=== PATIENT | female | born 1960 | race Caucasian/White ===

== ENCOUNTER 2024-03-17 14:51 | Inpatient (IN) | payer OTHER, MEDICAID ==
[~2024-03-17] VITALS: Ht 162.5 cm; Wt 38.4 kg
[2024-03-17] MEDS ORDERED: VALPROIC ACI50 MG/ML PO (18:41)
[2024-03-17] MEDS ORDERED: LEVOTHYROXINE75 MCG PO (18:43)
[2024-03-17] MEDS ORDERED: FAMOTIDINE40 MG PO (18:43)
[2024-03-17] MEDS ORDERED: NATURE'S BLEND100 M2 PO (18:44)
[2024-03-17] MEDS ORDERED: POTASSIUM CHLO10 MEQ PO (18:44)
[2024-03-17] MEDS ORDERED: GOOD SENSE ASP325 MG PO (18:45)
[2024-03-17] MEDS ORDERED: MIRTAZAPINE15 M2 PO (18:47)
[2024-03-18] MEDS ORDERED: IMODIUM A-D2 M2 PO (00:35)
[2024-03-18] MEDS ORDERED: ALUM-MAG HYDROX30 M1 PO (00:37)
[2024-03-18] MEDS ORDERED: VITAMIN D250 MC1 PO (00:40)
[2024-03-22] MEDS ORDERED: PHARMASSURE V500 MCG PO (13:44)
[2024-03-22] MEDS ORDERED: PHARMASSURE FO0.4 MG PO (13:44)
[2024-03-22] MEDS ORDERED: RISPERDAL0.5 MG PO (17:15)
[2024-03-22] MEDS ORDERED: ACETAMINOPHEN 325 MG TAB PO PRN (17:45)
[2024-03-22] MEDS ORDERED: Magnesium Hydroxide 30 ML UDC PO PRN (17:45)
[2024-03-22] MEDS ORDERED: MG-AL HYDROXIDE/SIMETICONE 30 ML UDC PO PRN (17:45)
[2024-03-22] MEDS ORDERED: Menthol/Zinc Oxide 4 GM THIN T PRN (17:55)
[2024-03-22 18:31] VITALS: BP 114/73
[2024-03-22 20:00] VITALS: BP 114/73
[2024-03-22] MEDS ORDERED: RISPERIDONE 0.5 MG TAB PO SCH (21:00)
[2024-03-22] MEDS ORDERED: Mirtazapine 15 MG TAB PO SCH (22:00)
[2024-03-23] MEDS ORDERED: Loperamide Hydrochloride 2 MG CAP PO PRN (00:25)
[2024-03-23] MEDS ORDERED: Levothyroxine Sodium 75 MCG TAB PO SCH (06:00)
[2024-03-23] MEDS ORDERED: Levothyroxine Sodium 75 MCG TAB PO ONE (06:26)
[2024-03-23 06:44] LABS: HEMATOCRIT 30.9 % (37.0-47.0); MEAN CORPUSCULAR HGB 35.7 pg (27.0-31.0); MEAN PLATELET VOLUME 10.2 fl (9.6-12.3); PLATELET COUNT AUTOMATED 317 10*3/uL (130-400); RED BLOOD COUNT 2.77 10*6/uL (4.10-5.10); RED CELL DISTRI WIDTH 13.5 % (0-14.5); WHITE BLOOD COUNT 6.1 10*3/uL (4.8-10.8)
[2024-03-23 06:51] LABS: MANUAL DIFF REFLEX YES; MEAN CELL VOLUME 111.6 fl (81.0-99.0)
[2024-03-23 07:18] LABS: VITAMIN D, 25-HYDROXY 31.7 ng/mL (30-100)
[2024-03-23 07:30] LABS: ALKALINE PHOSPHATASE 55 U/L (46-116); BUN 15 mg/dl (9-23); CHLORIDE 110 mmol/L (98-107); CHOLESTEROL 180 mg/dL (<200); LDL CHOLESTEROL 100 mg/dL (9-159); POTASSIUM 2.9 mmol/L (3.4-5.1); SGPT/ALT 24 U/L (5-49); TOTAL PROTEIN 6.8 gm/dL (6.0-8.0); TRIGLYCERIDES 146 mg/dl (<150)
[2024-03-23 07:34] LABS: BASOPHILS 1 % (0-1); PLATELET SUFFICIENCY NORMAL (NORMAL); TOTAL CELLS COUNTED 100 #CELLS
[2024-03-23 08:06] VITALS: BP 103/57
[2024-03-23] MEDS ORDERED: MAGNESIUM SULFATE 50 ML IV ONE ×2 (08:35→09:35)
[2024-03-23] MEDS ORDERED: FOLIC ACID 0.4 MG TAB PO SCH (10:00)
[2024-03-23] MEDS ORDERED: CYANOCOBALAMIN 500 MCG TAB PO SCH (10:00)
[2024-03-23] MEDS ORDERED: FAMOTIDINE 20 MG TAB PO SCH (10:00)
[2024-03-23] MEDS ORDERED: POTASSIUM CHLORIDE 10 MEQ TAB PO SCH (10:00)
[2024-03-23 11:26] LABS: BILIRUBIN Negative (Negative); BLOOD Negative (Negative); CLARITY Clear (Clear); COLOR Yellow (Yellow); GLUCOSE Negative (Negative); KETONE Negative (Negative); LEUKO ESTERASE Negative (Negative); NITRITE Negative (Negative); PH 6.5 (4.5-8.0); SPECIFIC GRAVITY <= 1.005 (1.001-1.030); UROBILINOGEN 0.2 E.U./dl (0.0-1.0)
[2024-03-23 12:19] LABS: BACTERIA TRACE
[2024-03-24 08:00] VITALS: BP 107/70
[2024-03-24 08:27] LABS: BUN 16 mg/dl (9-23); CHLORIDE 104 mmol/L (98-107); POTASSIUM 2.6 mmol/L (3.4-5.1)
[2024-03-24] MEDS ORDERED: ERGOCALCIFEROL 50,000 IU CAP (1.25 MG) PO SCH (09:00)
[2024-03-24 20:00] VITALS: BP 107/70
[2024-03-25 08:00] VITALS: BP 122/70
[2024-03-25 08:25] LABS: ALKALINE PHOSPHATASE 71 U/L (46-116); BUN 15 mg/dl (9-23); CHLORIDE 106 mmol/L (98-107); POTASSIUM 2.8 mmol/L (3.4-5.1); SGPT/ALT 35 U/L (5-49); TOTAL PROTEIN 7.8 gm/dL (6.0-8.0)
[2024-03-25 20:00] VITALS: BP 113/68
[2024-03-25] MEDS ORDERED: OLANZAPINE 2.5 MG TAB PO SCH (21:00)
[2024-03-26 07:57] VITALS: BP 97/77
[2024-03-26] MEDS ORDERED: POTASSIUM CHLORIDE 20 MEQ TAB PO SCH (17:00)
[2024-03-26 19:41] VITALS: BP 98/80
[2024-03-27 07:33] LABS: BUN 17 mg/dl (9-23); CHLORIDE 106 mmol/L (98-107); POTASSIUM 2.8 mmol/L (3.4-5.1)
[2024-03-27 07:37] LABS: ALKALINE PHOSPHATASE 63 U/L (46-116); BUN 17 mg/dl (9-23); CHLORIDE 105 mmol/L (98-107); POTASSIUM 2.8 mmol/L (3.4-5.1); SGPT/ALT 36 U/L (5-49); TOTAL PROTEIN 6.8 gm/dL (6.0-8.0)
[2024-03-27 08:00] VITALS: BP 100/63
[2024-03-27] MEDS ORDERED: Phosphorus/Potassium 1.45 GM PACKET PO SCH (12:00)
[2024-03-27 20:00] VITALS: BP 104/72
[2024-03-27] MEDS ORDERED: RISPERIDONE 1 MG TAB PO SCH (21:00)
[2024-03-27] MEDS ORDERED: clomiPRAMINE Hydrochloride 25 MG CAP PO SCH (21:00)
[2024-03-28 07:15] LABS: BUN 20 mg/dl (9-23); CHLORIDE 105 mmol/L (98-107); POTASSIUM 2.8 mmol/L (3.4-5.1)
[2024-03-28] MEDS ORDERED: UZEDY125 MG/0.3 SQ (07:38)
[2024-03-28 08:00] VITALS: BP 101/60
[2024-03-28] MEDS ORDERED: RISPERIDONE 125 MG/0.35 ML SUSER.SYR SQ SCH (16:00)
[2024-03-28 20:00] VITALS: BP 108/69
[2024-03-29 08:00] VITALS: BP 104/59
[2024-03-29] MEDS ORDERED: RISPERIDONE 125 MG/0.35 ML SUSER.SYR SQ SCH (09:00)
[2024-03-29 18:56] VITALS: BP 102/58
[2024-03-30] MEDS ORDERED: SODIUM CHLORIDE 0.9% 500 ML IV ONE (07:55)
[2024-03-30 08:00] VITALS: BP 86/75
[2024-03-30 08:34] LABS: BUN 23 mg/dl (9-23); CHLORIDE 105 mmol/L (98-107); POTASSIUM 3.2 mmol/L (3.4-5.1)
[2024-03-30 19:26] VITALS: BP 106/62
[2024-03-30] MEDS ORDERED: clomiPRAMINE Hydrochloride 25 MG CAP PO SCH (21:00)
[2024-03-31 08:00] VITALS: BP 95/63
[2024-03-31 20:00] VITALS: BP 98/63
[2024-04-01 06:27] LABS: BUN 20 mg/dl (9-23); CHLORIDE 105 mmol/L (98-107)
[2024-04-01 08:00] VITALS: BP 98/71
[2024-04-01 18:56] VITALS: BP 99/63
[2024-04-02 08:00] VITALS: BP 97/67
[2024-04-02 20:00] VITALS: BP 114/62
[2024-04-02] MEDS ORDERED: clomiPRAMINE Hydrochloride 25 MG CAP PO SCH (21:00)
[2024-04-03 07:43] VITALS: BP 99/68
[2024-04-03 20:41] VITALS: BP 95/61
[2024-04-04 08:00] VITALS: BP 103/72
[2024-04-04 20:00] VITALS: BP 110/76
[2024-04-05] MEDS ORDERED: CLOMIPRAMINE25 MG PO (06:55)
[2024-04-05 07:58] VITALS: BP 110/71
[2024-04-05 08:15] LABS: BUN 23 mg/dl (9-23); CHLORIDE 106 mmol/L (98-107); POTASSIUM 3.8 mmol/L (3.4-5.1)
[2024-04-05] MEDS ORDERED: POTASSIUM CHLO20 ME4 PO (11:08)
== END 2024-04-05 12:19 | DRG 885 ==
LOC: 3N 14:51
PROVIDERS: Counselor Professional; Internal Medicine; Nurse Practitioner Women's Health; Student in an Organized Health Care Education/Training Program; ADMIT Psychiatry & Neurology Psychiatry; ATTEND Psychiatry & Neurology Psychiatry
PROC: GZHZZZZ Group Psychotherapy (ICD-10-PCS; principal; 2024-03-24)
PROC: GZ51ZZZ Individual Psychotherapy, Behavioral (ICD-10-PCS; 2024-03-24)
DX: F25.9 Schizoaffective disorder, unspecified (principal); E43 Unspecified severe protein-calorie malnutrition; F50.00 Anorexia nervosa, unspecified; Z68.1 Body mass index [BMI] 19.9 or less, adult; E87.6 Hypokalemia; E53.8 Deficiency of other specified B group vitamins; D53.9 Nutritional anemia, unspecified; F42.9 Obsessive-compulsive disorder, unspecified; E83.42 Hypomagnesemia; R73.9 Hyperglycemia, unspecified; F84.0 Autistic disorder; E03.9 Hypothyroidism, unspecified; K21.9 Gastro-esophageal reflux disease without esophagitis; Z88.0 Allergy status to penicillin; Z91.041 Radiographic dye allergy status; Z91.013 Allergy to seafood; Z90.710 Acquired absence of both cervix and uterus; Z82.49 Family history of ischemic heart disease and other diseases of the circulatory system

== ENCOUNTER 2024-08-18 13:39 | Inpatient (IN) | payer OTHER, MEDICAID ==
[~2024-08-18] VITALS: Ht 162.5 cm; Wt 43.5 kg
[~2024-08-18 13:39] MED LIST: ALUM-MAG HYDROX30 M1 PO; CLARITIN10 MG PO; CLOMIPRAMINE25 MG PO; FAMOTIDINE40 MG PO; GOOD SENSE ASP325 MG PO; HYDROXYZINE HCL25 MG PO; IMODIUM A-D2 M2 PO; LEVOTHYROXINE75 MCG PO; MELATONIN10 M2 PO; MIRTAZAPINE15 M2 PO; MULTIVITAMINS1 EAC6 PO; NATURE'S BLEND100 M2 PO; PHARMASSURE FO0.4 MG PO; PHARMASSURE V500 MCG PO; POTASSIUM CHLO10 MEQ PO; POTASSIUM CHLO20 ME4 PO; RISPERDAL0.5 MG PO; SYNTHROID,LEVO88 MCG PO; UZEDY125 MG/0.3 SQ; VALPROIC ACI50 MG/ML PO; VAZALORE81 MG PO; VITAMIN D250 MC1 PO
[2024-08-18] MEDS ORDERED: LORazepam 2 MG/ML VIAL IM PRN (15:40)
[2024-08-18] MEDS ORDERED: LORazepam 1 MG TAB PO PRN (15:40)
[2024-08-18] MEDS ORDERED: Ziprasidone Mesylate 20 MG VIAL IM PRN (15:40)
[2024-08-18] MEDS ORDERED: ACETAMINOPHEN 325 MG TAB PO PRN (15:45)
[2024-08-18] MEDS ORDERED: Magnesium Hydroxide 30 ML UDC PO PRN (15:45)
[2024-08-18] MEDS ORDERED: MG-AL HYDROXIDE/SIMETICONE 30 ML UDC PO PRN (15:45)
[2024-08-18] MEDS ORDERED: Water, Sterile 10 ML VIAL IM PRN (15:55)
[2024-08-18] MEDS ORDERED: LORATADINE 10 MG TAB PO PRN (16:05)
[2024-08-18] MEDS ORDERED: Loperamide Hydrochloride 2 MG CAP PO PRN (16:05)
[2024-08-18 16:30] VITALS: BP 125/66
[2024-08-18] MEDS ORDERED: RISPERIDONE 0.5 MG ODT OGT SCH (18:00)
[2024-08-18 20:00] VITALS: BP 106/56
[2024-08-19] MEDS ORDERED: Levothyroxine Sodium 88 MCG TAB PO SCH (06:00)
[2024-08-19 08:52] VITALS: BP 130/70
[2024-08-19] MEDS ORDERED: Cholecalciferol 2,000 UNIT TABLET (50 MCG) PO SCH (09:00)
[2024-08-19] MEDS ORDERED: FAMOTIDINE 20 MG TAB PO SCH (09:00)
[2024-08-19] MEDS ORDERED: ASPIRIN, CHEWABLE 81 MG TAB PO SCH (09:00)
[2024-08-19 20:00] VITALS: BP 128/75
[2024-08-20] MEDS ORDERED: Levothyroxine Sodium 88 MCG TAB PO SCH (06:00)
[2024-08-20 07:48] VITALS: BP 121/66
[2024-08-20 20:00] VITALS: BP 126/81
[2024-08-21] MEDS ORDERED: Levothyroxine Sodium 100 MCG TAB PO SCH (06:00)
[2024-08-21 08:00] VITALS: BP 112/66
[2024-08-21 10:42] LABS: BILIRUBIN Negative (Negative); BLOOD Negative (Negative); CLARITY Clear (Clear); COLOR Yellow (Yellow); GLUCOSE Negative (Negative); KETONE Negative (Negative); LEUKO ESTERASE Negative (Negative); NITRITE Negative (Negative); SPECIFIC GRAVITY <= 1.005 (1.001-1.030); UROBILINOGEN 0.2 E.U./dl (0.0-1.0)
[2024-08-21] MEDS ORDERED: PALIPERIDONE PALMITATE 156 MG INJECTION IM ONE (11:00)
[2024-08-21 11:40] LABS: BACTERIA 2+; EPITHELIAL CELLS 0-2; WBC 0-2 wbc/hpf (0-5)
[2024-08-21 20:00] VITALS: BP 133/73
[2024-08-22] MEDS ORDERED: Levothyroxine Sodium 88 MCG TAB PO SCH (06:00)
[2024-08-22 08:00] VITALS: BP 117/53
[2024-08-22 20:00] VITALS: BP 129/65
[2024-08-23 08:17] VITALS: BP 123/71
[2024-08-23 20:00] VITALS: BP 134/81
[2024-08-24 08:02] VITALS: BP 130/79
[2024-08-24] MEDS ORDERED: PALIPERIDONE PALMITATE 156 MG INJECTION IM SCH (09:00)
[2024-08-24 20:00] VITALS: BP 101/70
[2024-08-25 08:00] VITALS: BP 115/70
[2024-08-25 20:00] VITALS: BP 101/53
[2024-08-26 08:00] VITALS: BP 94/66
[2024-08-26] MEDS ORDERED: DICLOFENAC SODIUM 100 GM TUBE T SCH (18:00)
[2024-08-26 20:00] VITALS: BP 99/59
[2024-08-27 08:00] VITALS: BP 106/56
[2024-08-27 20:00] VITALS: BP 120/60
[2024-08-28 06:18] LABS: BASO % 0.4 % (0.0-1.0); EOS # 0.1 10*3/uL (0.0-0.4); EOS % 1.6 % (1.0-4.0); HEMATOCRIT 26.8 % (37.0-47.0); MEAN CELL VOLUME 96.8 fl (81.0-99.0); MEAN PLATELET VOLUME 8.7 fl (9.6-12.3); MONO # 0.9 10*3/uL (0.1-1.0); MONO % 11.4 % (3.0-9.0); NEUT # 4.9 10*3/uL (2.3-7.9); NEUT % 65.4 % (47.0-73.0); PLATELET COUNT AUTOMATED 485 10*3/uL (130-400); RED BLOOD COUNT 2.77 10*6/uL (4.10-5.10); RED CELL DISTRI WIDTH 14.7 % (0-14.5); WHITE BLOOD COUNT 7.5 10*3/uL (4.8-10.8)
[2024-08-28 06:51] LABS: ALKALINE PHOSPHATASE 75 U/L (46-116); BUN 14 mg/dl (9-23); CHLORIDE 107 mmol/L (98-107); FREE T4 1.02 ng/dl (0.89-1.76); POTASSIUM 3.5 mmol/L (3.4-5.1); SGPT/ALT 28 U/L (5-49); TOTAL PROTEIN 6.3 gm/dL (6.0-8.0)
[2024-08-28 07:55] VITALS: BP 105/66
[2024-08-28] MEDS ORDERED: INVEGA SUSTENN156 MG IM (09:49)
[2024-08-28] MEDS ORDERED: Synthroid,Levo88 MCG PO ×2 (11:47→11:48)
== END 2024-08-28 13:05 | DRG 885 ==
LOC: 3N 13:39
PROVIDERS: Counselor Professional; Nurse Practitioner Women's Health; ADMIT Psychiatry & Neurology Psychiatry; ATTEND Psychiatry & Neurology Psychiatry
PROC: GZHZZZZ Group Psychotherapy (ICD-10-PCS; principal; 2024-08-19)
PROC: GZ56ZZZ Individual Psychotherapy, Supportive (ICD-10-PCS; 2024-08-19)
DX: F25.9 Schizoaffective disorder, unspecified (principal); E43 Unspecified severe protein-calorie malnutrition; F50.00 Anorexia nervosa, unspecified; Z68.1 Body mass index [BMI] 19.9 or less, adult; E03.9 Hypothyroidism, unspecified; F84.0 Autistic disorder; Z66 Do not resuscitate; D64.9 Anemia, unspecified; D75.839 Thrombocytosis, unspecified; R73.9 Hyperglycemia, unspecified; E87.6 Hypokalemia; K21.9 Gastro-esophageal reflux disease without esophagitis; Z85.3 Personal history of malignant neoplasm of breast; Z90.710 Acquired absence of both cervix and uterus; Z90.722 Acquired absence of ovaries, bilateral; Z79.899 Other long term (current) drug therapy; Z79.01 Long term (current) use of anticoagulants; Z79.2 Long term (current) use of antibiotics; Z88.0 Allergy status to penicillin; Z91.013 Allergy to seafood; Z91.018 Allergy to other foods; Z88.8 Allergy status to other drugs, medicaments and biological substances; Z91.09 Other allergy status, other than to drugs and biological substances